=== PATIENT | female | born 2000 | race Hispanic/Latino ===

== ENCOUNTER 2020-10-19 22:56 | Emergency (ER) | payer SELFPAY ==
[~2020-10-19] VITALS: Ht 167.6 cm; Wt 81.6 kg
[2020-10-19] MEDS ORDERED: ORPHENADRINE CITRATE 30 MG/ML VIAL IM ONE (23:15)
[2020-10-19] MEDS ORDERED: KETOROLAC TROMETHAMINE 60 MG/2 ML VIAL IM ONE (23:15)
== END 2020-10-19 23:30 | disposition home or self-care (01) ==
LOC: ER 23:24
DX: S39.012A Strain of muscle, fascia and tendon of lower back, initial encounter (principal); X50.0XXA Overexertion from strenuous movement or load, initial encounter
CPT/HCPCS: 99282; J1885; J2360

== ENCOUNTER 2021-04-17 03:15 | Inpatient (IN) | payer SELFPAY ==
[~2021-04-17] VITALS: Ht 167.6 cm; Wt 86.2 kg
[2021-04-17 03:38] LABS: BASOPHILS # (AUTO) 0.1 (0.0-0.1); BASOPHILS % 0.3 % (0.0-1.0); EOSINOPHILS # (AUTO) 0.2 (0.0-0.4); EOSINOPHILS % 1.2 % (0.0-6.0); HEMATOCRIT 37.2 % (34.2-44.1); HEMOGLOBIN 12.7 g/dL (12.0-16.0); LYMPHOCYTES # (AUTO) 3.5 (1.0-3.2); MEAN CORPUSCULAR HEMOGLOBIN 29.8 pg (28-32); MEAN CORPUSCULAR HGB CONC 34.1 g/dL (31-35); MEAN CORPUSCULAR VOLUME 87.3 fL (81-99); MONOCYTES # (AUTO) 0.9 (0.2-0.8); MONOCYTES % 5.3 % (4.4-11.3); NEUTROPHILS # (AUTO) 12.7 (2.1-6.9); NEUTROPHILS % 72.8 % (38.7-80.0); PLATELET COUNT 266 x10e3/uL (140-360); RED BLOOD COUNT 4.26 x10e6/uL (3.6-5.1); RED CELL DISTRIBUTION WIDTH 12.3 % (11.7-14.4)
[2021-04-17 03:43] LABS: CLARITY,URINE CLEAR (CLEAR); COLOR,URINE YELLOW (YELLOW); KETONES,URINE NEGATIVE (NEGATIVE); LEUKOCYTE ESTERASE ,URINE NEGATIVE (NEGATIVE); NITRITE,URINE NEGATIVE (NEGATIVE); PROTEIN,URINE DIPSTICK NEGATIVE (NEGATIVE); URINE UROBILINOGEN 0.2 mg/dL (0.2 - 1)
[2021-04-17] MEDS ORDERED: ACETAMINOPHEN 325 MG TAB ONE (03:44)
[2021-04-17] MEDS ORDERED: SODIUM CHLORIDE 0.9% 1000ML 1,000 ML ONE (03:44)
[2021-04-17] MEDS ORDERED: ACETAMINOPHEN 325 MG TAB PO ONE (03:45)
[2021-04-17] MEDS ORDERED: SODIUM CHLORIDE 0.9% 1000ML 1,000 ML IV ONE (03:45)
[2021-04-17 03:48] LABS: AMORPHOUS SEDIMENT,URINE MODERATE (FEW); BACTERIA,URINE FEW /HPF; EPITHELIAL CELLS,URINE MODERATE /LPF; WBC,URINE (MAN) 0-5 /HPF (0-5)
[2021-04-17 03:59] LABS: ALBUMIN 4.4 g/dL (3.5-5.0); ALBUMIN/GLOBULIN RATIO 1.4 (0.8-2.0); ANION GAP 17.4 mmol/L (8-16); CALCIUM 9.2 mg/dL (8.4-10.2); CREATININE, SERUM 0.7 mg/dL (0.57-1.11); POTASSIUM 4.4 mmol/L (3.5-5.1)
[2021-04-17 04:24] LABS: AMPHETAMINES SCREEN,URINE NEGATIVE (NEGATIVE); BENZODIAZEPINES SCREEN,URINE NEGATIVE (NEGATIVE); PHENCYCLIDINE SCREEN,URINE NEGATIVE (NEGATIVE)
[2021-04-17] MEDS ORDERED: SODIUM CHLORIDE 0.9% 50ML 50 ML ONE (04:29)
[2021-04-17] MEDS ORDERED: IOPAMIDOL 370 MG/ML 200 ML INFUS..BTL INJ ONE (04:29)
[2021-04-17] MEDS ORDERED: ONDANSETRON HCL INJ 2MG/ML 2ML 2 MG/ML VIAL IV STA (04:39)
[2021-04-17] MEDS ORDERED: MORPHINE SULFATE INJ 4 MG/ML INJ 1ML IV PRN ×2 (04:45→05:45)
[2021-04-17] MEDS ORDERED: CEFTRIAXONE 1 GM VIAL ONE (04:59)
[2021-04-17] MEDS ORDERED: CEFTRIAXONE 1 GM in SODIUM CHLORIDE 0.9% 50ML 50 ML IV ONE (05:00)
[2021-04-17] MEDS ORDERED: CEFTRIAXONE 1 GM VIAL IV ONE (05:00)
[2021-04-17] MEDS ORDERED: ONDANSETRON HCL INJ 2MG/ML 2ML 2 MG/ML VIAL IV PRN (05:45)
[2021-04-17 11:17] VITALS: BP 117/77
[2021-04-17] MEDS: SODIUM CHLORIDE 0.9% 1000ML 1,000 ML IV SCH ×3 (11:40→18:58)
[2021-04-17 11:53] VITALS: BP 117/77
[2021-04-17 16:49] VITALS: BP 122/81
[2021-04-17] MEDS ORDERED: BUPIVACAINE 0.25% 30ML SDV ONE (17:04)
[2021-04-17] MEDS ORDERED: HYDROMORPHONE 1MG/1ML INJ IV PRN (18:30)
[2021-04-17] MEDS: KETOROLAC TROMETHAMINE 30 MG/ML VIAL IV PRN (19:42)
[2021-04-17 20:49] VITALS: BP 145/96
[2021-04-17 20:57] VITALS: BP 145/96
[2021-04-17] MEDS: HYDROCODONE/APAP 7.5MG-325MG 1 EA TAB PO PRN (21:36)
[2021-04-18 00:26] VITALS: BP 109/63
[2021-04-18] MEDS: SODIUM CHLORIDE 0.9% 1000ML 1,000 ML IV SCH ×2 (04:05→14:30)
[2021-04-18] MEDS: HYDROCODONE/APAP 7.5MG-325MG 1 EA TAB PO PRN ×2 (04:12→12:51)
[2021-04-18 05:19] VITALS: BP 109/67
[2021-04-18 05:52] LABS: BASOPHILS % 0.1 % (0.0-1.0); HEMATOCRIT 33.6 % (34.2-44.1); HEMOGLOBIN 11.2 g/dL (12.0-16.0); LYMPHOCYTES % 10.5 % (18.0-39.1); MEAN CORPUSCULAR HEMOGLOBIN 29.5 pg (28-32); MEAN CORPUSCULAR HGB CONC 33.3 g/dL (31-35); MEAN CORPUSCULAR VOLUME 88.4 fL (81-99); MONOCYTES # (AUTO) 0.2 (0.2-0.8); MONOCYTES % 1.6 % (4.4-11.3); NEUTROPHILS # (AUTO) 8.4 (2.1-6.9); NEUTROPHILS % 87.4 % (38.7-80.0); PLATELET COUNT 252 x10e3/uL (140-360); RED CELL DISTRIBUTION WIDTH 12.3 % (11.7-14.4)
[2021-04-18 06:15] LABS: ANION GAP 13.1 mmol/L (8-16); CREATININE, SERUM 0.62 mg/dL (0.57-1.11); POTASSIUM 4.1 mmol/L (3.5-5.1)
[2021-04-18 07:15] VITALS: BP 112/61
[2021-04-18 08:51] VITALS: BP 112/61
[2021-04-18 08:52] VITALS: BP 112/61
[2021-04-18] MEDS ORDERED: CEFTRIAXONE 1 GM in SODIUM CHLORIDE 0.9% 50ML 50 ML IV SCH (09:00)
[2021-04-18] MEDS: KETOROLAC TROMETHAMINE 30 MG/ML VIAL IV PRN (09:44)
[2021-04-18 11:36] VITALS: BP 105/62
== END 2021-04-18 15:35 | disposition home or self-care (01) | DRG 343 ==
LOC: ER 04:23 → ERHOLD 05:33 → MED/SURG 10:54 → OBSVTOIN 04-18 08:38
PROVIDERS: ADMIT Surgery; ATTEND Surgery
PROC: 0DTJ4ZZ Resection of Appendix, Percutaneous Endoscopic Approach (ICD-10-PCS; principal; 2021-04-17 16:59)
DX: K35.80 Unspecified acute appendicitis (principal); Z20.822 Contact with and (suspected) exposure to COVID-19
CPT/HCPCS: 36415; 74177; 80048; 80053; 80307; 81001; 81025; 83605; 83690; 85025; 87040; 88304; 96376; 99284; C1766; G0378; J0696; J1885; J2270; J2405; J7030; Q9967; U0002

== ENCOUNTER 2022-01-22 04:05 | Emergency (ER) | payer OTHER ==
[~2022-01-22] VITALS: Ht 167.6 cm; Wt 86.2 kg
[2022-01-22] MEDS ORDERED: ACETAMINOPHEN 325 MG TAB PO ONE ×2 (04:15→04:30)
[2022-01-22] MEDS ORDERED: KETOROLAC TROMETHAMINE 30 MG/ML VIAL IM STA (04:21)
[2022-01-22] MEDS ORDERED: ONDANSETRON HCL 4 MG ORAL DISINTEGRATING TAB PO ONE (04:30)
[2022-01-22] MEDS ORDERED: ONDANSETRON HCL 4 MG ORAL DISINTEGRATING TAB ONE (04:30)
[2022-01-22] MEDS ORDERED: ACETAMINOPHEN 325 MG TAB ONE (04:30)
[2022-01-22] MEDS ORDERED: KETOROLAC TROMETHAMINE 30 MG/ML VIAL ONE (04:36)
[2022-01-22] MEDS ORDERED: MUCINEX DM ER1 EACH PO (04:58)
== END 2022-01-22 05:53 | disposition home or self-care (01) ==
LOC: ER 04:20
DX: U07.1 COVID-19 (principal)
CPT/HCPCS: 81025; 99283; J1885; Q0162; U0002

== ENCOUNTER 2025-04-02 20:39 | Emergency (ER) | payer MEDICAID, OTHER ==
[~2025-04-02] VITALS: Ht 167.6 cm; Wt 92.5 kg
[~2025-04-02 20:39] MED LIST: ANAPROX DS550 MG PO; MUCINEX DM ER1 EACH PO
[2025-04-02 20:43] VITALS: PULSE 104; RESP 18; TEMP 98.8
[2025-04-02 23:01] LABS: LEUKOCYTE ESTERASE ,URINE SMALL (NEGATIVE); PROTEIN,URINE DIPSTICK NEGATIVE (NEGATIVE); URINE UROBILINOGEN 1 mg/dL (0.2 - 1)
[2025-04-02 23:12] LABS: CORONAVIRUS COVID-19 AG POSITIVE (NEGATIVE)
[2025-04-02 23:32] LABS: EPITHELIAL CELLS,URINE MODERATE /LPF
[2025-04-03] MEDS ORDERED: CEFDINIR300 MG PO (00:13)
[2025-04-03 00:15] VITALS: BP 133/89; PULSE 99; RESP 17; TEMP 98.5; O2SAT 97
== END 2025-04-03 00:24 | disposition home or self-care (01) ==
LOC: ER 23:22
DX: R51.9 Headache, unspecified (principal); U07.1 COVID-19; N39.0 Urinary tract infection, site not specified; R09.89 Other specified symptoms and signs involving the circulatory and respiratory systems
CPT/HCPCS: 81001; 99283